=== PATIENT | female | born 1970 | race Caucasian/White ===

== ENCOUNTER → 2023-01-09 | Outpatient (CLI) | payer OTHER, SELFPAY ==
[2023-01-09 18:02] LABS: AST(SGOT) 27 U/L (15-37); Alanine Aminotransfer ALT/SGPT 32 U/L (13-56); Albumin, Serum 3.5 g/dL (3.2-5.0); Alkaline Phosphatase 63 U/L (45-117); Bilirubin, Direct 0.09 mg/dL (0.00-0.30); Globulin 3.9 g/dL (2.2-4.2); Protein, Total 7.4 g/dL (6.4-8.2)
[2023-01-09 18:03] LABS: Hepatitis B Surface Antibody Non-Reactive
[2023-01-11 07:09] LABS: HEPATITIS B SURFACE AG Negative (Negative); Hep C Antibodies Non Reactive (Non Reactive); Hepatitis A AB, Total Negative (Negative); Hepatitis A IgM Antibody Negative (Negative); Hepatitis B Core AB IgM Negative (Negative)
== END | disposition home or self-care (01) ==
LOC: MFPLAB 16:04
PROVIDERS: Visit Provider Family Medicine
DX: R74.8 Abnormal levels of other serum enzymes (principal)
CPT/HCPCS: 36415; 80074; 80076; 86706; 86708

== ENCOUNTER → 2023-01-26 | Outpatient (CLI) | payer OTHER, SELFPAY ==
--- NOTE | 2023-01-26 07:51 | US_ITS ---
INDICATION: History of progressively elevated liver enzymes EXAMINATION: Ultrasound US Abdomen RUQ (limited) TECHNIQUE: Posada scale and color doppler imaging was performed of the right upper quadrant. COMPARISON: None. FINDINGS: LIVER: Hyperechoic parenchyma. Liver cysts measure up to 1.3 cm. There is no free fluid. GALLBLADDER AND BILIARY TREE: Prior cholecystectomy. The proximal common bile duct measures 6 mm, which is within normal limits for the patient''s age. Sonographic Shah''s sign: Negative. PANCREAS: No focal abnormality is demonstrated in the pancreas. No pancreatic ductal dilatation. RIGHT KIDNEY: 10.9 x 4.7 x 4.7 cm. 1.4 cm calculus. 1.1 cm cyst. US/Abdomen Limited IMPRESSION: 1. Hyperechoic liver compatible with chronic hepatocellular disease such as steatosis. 2. Right renal collecting system calculus. Electronically Signed: Clive Spence MD at 16:28 EDT ,
== END | disposition home or self-care (01) ==
LOC: US 07:50
PROVIDERS: PCP Family Medicine; Referring Provider Family Medicine; Visit Provider Family Medicine
DX: R74.8 Abnormal levels of other serum enzymes (principal)
CPT/HCPCS: 76705